=== PATIENT | female | born 1985 | race Caucasian/White ===

== ENCOUNTER 2018-07-26 19:40 | Emergency (ER) | payer BC ==
[~2018-07-26] VITALS: Ht 170.2 cm; Wt 68.0 kg
[~2018-07-26 19:40] MED LIST: ACETAMINOPHEN-1 EAC1 PO; CLONAZEPAM PO; FISH OIL/OMEGA; FLEXERIL PO; FROVA2.5 MG PO; IBUPROFEN 800800 M1 PO; IMITREX100 MG PO; KAPVAY0.1 MG PO; LAMICTAL100 MG PO; MIGRANAL1 ML; MIRENA1 EACH IY; NORCO 5-325 TA1 EACH PO; OMEPRAZOLE40 MG PO; PERCOCET 5-3251 EACH PO; PHENERGAN 25 MG25 M1 PO; PREVACID 30MG C30 M1 PO; PROAIR HFA8.5 GM INH; PROPRANOLOL HCL60 M1 PO; SIMVASTATIN40 MG PO; SUMATRIPTAN20 MG PO; SUMAVEL DO6 MG/0.5 M; TENEX2 MG PO; TRAZODONE 150150 M1 PO; TRAZODONE HCL100 MG PO; TREXIMET 85-501 EACH PO; TRILEPTAL600 MG PO; UNICOMPLEX M TA1 TA1 PO; VALIUM5 MG PO; VERAPAMIL PO; VISTARIL 25 MG25 M1 PO; ZOFRAN ODT4 MG PO
[2018-07-26] MEDS ORDERED: ZYRTEC10 M5 PO (20:19)
[2018-07-26] MEDS ORDERED: MIRENA1 EACH IY (20:19)
[2018-07-26] MEDS ORDERED: PRISTIQ100 MG PO (20:19)
[2018-07-26] MEDS ORDERED: FLOVENT HFA 4444 MCG INH (20:20)
[2018-07-26] MEDS ORDERED: COLACE100 MG PO (20:20)
[2018-07-26] MEDS ORDERED: ROBAXIN 750 MG750 M1 PO (20:25)
[2018-07-26 20:39] VITALS: BP 101/65
== END 2018-07-26 20:40 | disposition home or self-care (01) ==
LOC: M.ERS 19:40
DX: G89.29 Other chronic pain (principal); M54.5 Low back pain; K21.9 Gastro-esophageal reflux disease without esophagitis; F31.9 Bipolar disorder, unspecified; F41.9 Anxiety disorder, unspecified; N80.9 Endometriosis, unspecified; F17.210 Nicotine dependence, cigarettes, uncomplicated; Z88.0 Allergy status to penicillin; Z88.1 Allergy status to other antibiotic agents; Z88.2 Allergy status to sulfonamides; Z88.8 Allergy status to other drugs, medicaments and biological substances; Z90.49 Acquired absence of other specified parts of digestive tract

== ENCOUNTER 2019-11-06 12:35 | Emergency (ER) | payer BC ==
[~2019-11-06] VITALS: Ht 162.6 cm; Wt 89.4 kg
[~2019-11-06 12:35] MED LIST changes: +COLACE100 MG PO; +FLOVENT HFA 4444 MCG INH; +PRISTIQ100 MG PO; +ROBAXIN 750 MG750 M1 PO; +ZYRTEC10 M5 PO
[2019-11-06] MEDS ORDERED: CYPROHEPTADINE 44 MG PO (12:48)
[2019-11-06] MEDS ORDERED: PRILOSEC2.5 MG PO (12:49)
[2019-11-06 13:11] LABS: INFLUENZA A ANTIGEN Negative (Negative); INFLUENZA B ANTIGEN Negative (Negative)
[2019-11-06 13:23] LABS: ABSOLUTE LYMPHOCYTES 1.2 thou/uL (0.8-5.3); ABSOLUTE MONOCYTES 0.6 thou/uL (0.0-1.2); ABSOLUTE NEUTROPHILS 4.7 thou/uL (1.6-8.1); BASOPHILS 0.4 %; EOSINOPHILS 0.2 %; HEMATOCRIT 39.9 % (37.0-47.0); HEMOGLOBIN 13.9 gm/dL (12.0-15.0); LYMPHOCYTES 17.9 %; MCH 31.8 pg (26.0-34.0); MONOCYTES 9.3 %; MPV 9.8 fl. (7.2-11.1); NUCLEATED RBCS 0 /100WBC; PLATELET COUNT* 176 thou/uL (150-400); POLYS 72.2 %; RBC 4.38 mil/uL (4.20-5.00); RDW-CV 12.7 % (10.5-14.5); WBC 6.5 thou/uL (4.0-11.0)
[2019-11-06 13:32] LABS: CALCIUM 8.7 mg/dL (8.5-10.1); POTASSIUM 3.4 mmol/L (3.5-5.1)
[2019-11-06 13:36] LABS: ALBUMIN 3.8 g/dL (3.4-5.0); TOTAL BILIRUBIN 0.4 mg/dL (<0.1-1.0); TOTAL PROTEIN 7.7 g/dL (6.4-8.2)
[2019-11-06 14:44] LABS: URINE BILIRUBIN NEGATIVE (Negative); URINE BLOOD TRACE (Negative); URINE CLARITY CLEAR; URINE COLOR YELLOW; URINE GLUCOSE-RANDOM NEGATIVE (Negative); URINE KETONES NEGATIVE (Negative); URINE LEUKOCYTES-REFLEX NEGATIVE (Negative); URINE NITRITE-REFLEX NEGATIVE (Negative); URINE PROTEIN NEGATIVE (Negative); URINE SPECIFIC GRAVITY 1.015 (1.005-1.030); URINE UROBILINOGEN 0.2 E.U./dl (0.2-1.0)
--- NOTE | 2019-11-06 15:18 | EKG ---
[place] [address] ELECTROCARDIOGRAM REPORT Name: CHAO LAM Room: [facility]#: [id number] Admission: 11/06/19 Attend Phys: Discharge: Date of : 85 Report #: [id number] THIS REPORT FOR: //name// [facility] ED Test Date: 2019-11-06 Test Time: 12:43:00 Pat Name: CHAO LAM Department: Room: Gender: F [employer] Equipment Supervisor: TAVO : 1985 Requested By: Edgar Lund Order Number: [id number] MD: Jose Win Measurements Intervals Shepherd Rate: 85 P: 21 DE: 164 QRS: -1 QRSD: 100 T: -26 QT: 378 QTc: 450 Interpretive Statements Sinus rhythm Nonspecific T abnormalities, anterior leads Compared to ECG 08/02/2014 13:29:41 No significant changes Electronically Signed On 11-06-2019 15:18:20 [employer]IP LOAD[employer] by Jose Win [email or web address] <ELECTRONICALLY SIGNED> By: Jose Win MD, [facility] 11/06/19 1518 1243 1243 Jose Win MD, FACC /EPI
[2019-11-06 15:31] VITALS: BP 147/69
== END 2019-11-06 15:32 | disposition home or self-care (01) ==
LOC: M.ERS 12:35
PROVIDERS: Family Medicine; Nurse Practitioner Family
DX: R11.2 Nausea with vomiting, unspecified (principal); R19.7 Diarrhea, unspecified; K21.9 Gastro-esophageal reflux disease without esophagitis; F32.9 Major depressive disorder, single episode, unspecified; Z90.49 Acquired absence of other specified parts of digestive tract; F41.9 Anxiety disorder, unspecified; F17.210 Nicotine dependence, cigarettes, uncomplicated; Z88.1 Allergy status to other antibiotic agents; Z88.0 Allergy status to penicillin; Z88.2 Allergy status to sulfonamides